=== PATIENT | female | born 1945 | race Caucasian/White ===

== ENCOUNTER 2020-02-01 13:58 | Outpatient (CLI) | payer MEDICARE ==
--- NOTE | 2020-02-01 16:34 | MRI ---
MRI cervical spine noncontrast: 02/01/2020 HISTORY: 74-year-old female with cervicalgia and left cervical radiculopathy. COMPARISON: None FINDINGS: Vertebral body heights are maintained. No major bone marrow signal abnormality. Cervical spinal cord is normal in size and signal. 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 Despite this, no high-grade central sp inal canal stenosis. C2-3: Disc space maintained. Moderate left facet DJD. Essentially normal right facet joint. No centra l or right neural foraminal stenosis. Mild left neural foraminal stenosis. C3-4: Disc space maintained. Moderate bilateral facet DJD. No central spinal canal stenosis. Small bi lateral uncinate process osteophytes. Moderate right and minimal left neural foraminal stenosis. C4-5: Moderate to severe disc space narrowing. Retrolisthesis of C4 on C5. Broad-based prominent disc -osteophyte complex abuts and minimally posteriorly displaces spinal cord. Mildly thickened ligamentum flavum. Overall moderate-severe central spinal canal stenosis. Moderate size bilateral unc inate process osteophytes. Severe bilateral neural foraminal stenosis, right worse than left. Mild to moderate bilateral facet DJD. C5-6: Moderate disc space narrowing. Prominent broad-based disc-osteophyte complex encroaches upon sp inal canal. Mild ligamentum flavum thickening. Moderate to severe central spinal canal stenosis. Moderate to large bilateral uncinate process osteophytes. Moderate to severe right neural foraminal s tenosis. Mild-moderate left neural foraminal stenosis. Normal facet joints. C6-7: Moderate disc space narrowing. Broad-based disc-osteophyte complex protrudes into anterior aspe ct of spinal canal. Moderate to severe central spinal canal stenosis. Large bilateral uncinate process osteophytes. Severe right neural foraminal stenosis. Moderate to severe left neural foraminal stenosis. No high-grade facet DJD. Slight retrolisthesis of C6 on C7. C7-T1: Moderate right and severe left facet DJD results in minimal grade 1 anterolisthesis of C7 on T 1. Disc space maintained. Diffuse disc bulge. Superimposed small central disc herniation with slight superior migration. Mild ligamentum flavum thickening. Moderate-severe central spinal canal st enosis. Left facet joint effusion. 1 x 0.4 x 0.5 cm left synovial cyst occupies the left lateral recess and proximal left neural foramen, contributing to impingement on exiting left C8 nerve root. N o significant right neural foraminal stenosis. IMPRESSION: 1.) Cervical spondylosis including high-grade degenerative disc disease at C4-5, C5-6, and C6-7; and multilevel facet osteoarthrosis. 2) severe left facet arthrosis at C7-T1, where there is also a prominent left synovial cyst, contribu ting to impingement on the exiting left C8 nerve root. 3) multilevel central spinal canal stenosis and neural foraminal stenosis.
--- NOTE | 2020-02-01 20:13 | MRI ---
MRI OF LEFT SHOULDER PERFORMED WITHOUT CONTRAST ENHANCEMENT: History: Acute left shoulder. Complains of neck pain for years. In addition, left arm pain and numbne ss. FINDINGS: There is some moderate arthrosis of the AC joint. The supra and infraspinatus tendons are intact. The subscapularis muscle and tendon are intact and the biceps tendon is in normal position within the bicipital grove. The bicipital labral complex appears intact. The posterior labrum is mildly truncat ed. Inferior glenohumeral ligament and labral complex appears unremarkable. There are mild arthritic changes of the glenohumeral joint space. No rotator cuff muscle atrophy is seen. There is a very distended somewhat multiloculated subscapularis recess. This extends along the anteri or and superior border of the subscapularis tendon passing beneath the coricoid on the coronal imagin g it is approximately 4.2 cm in transverse dimension. There is some partial obliteration of the fat i n the subcoracoid fat which could indicate a mild capsulitis. IMPRESSION: 1. No evidence of rotator cuff tear. 2. Prominent loculated subscapularis recess. POS: [facility]
== END 2020-02-01 13:59 | disposition home or self-care (01) ==
LOC: BICMRI 13:58
PROVIDERS: ATTEND Orthopaedic Surgery
DX: M25.512 Pain in left shoulder (principal); M47.812 Spondylosis without myelopathy or radiculopathy, cervical region; M50.30 Other cervical disc degeneration, unspecified cervical region; M47.813 Spondylosis without myelopathy or radiculopathy, cervicothoracic region; M71.38 Other bursal cyst, other site; M48.02 Spinal stenosis, cervical region
CPT/HCPCS: 72141